=== PATIENT | female | born 1945 | race Caucasian/White ===

== ENCOUNTER → 2017-12-12 07:56 | Outpatient (CLI) | payer MEDICARE, MEDICAID, SELFPAY ==
[2017-12-12 09:16] LABS: Add Manual Diff / Slide Review NO; Basophils Percent Auto 0.6 % (0-2); Hematocrit 37.4 % (36-46); Hemoglobin 12.9 g/dL (12.0-16.0); Lymphocytes Percent Auto 32.8 % (25-40); Mean Corpuscular HGB Conc 34.3 % (30-36); Mean Corpuscular Volume 87.5 fL (80-100); Monocytes Percent Auto 8.5 % (3-14); Neutrophils Absolute Auto 3700 /uL (3000-5900); Neutrophils Percent Auto 55.1 % (50-75); Platelet Count 250 X10^3/uL (150-400); Red Blood Cell Count 4.28 X10^6/uL (4.0-5.2); Red Cell Distribution Width 13.7 % (11.6-14.8); White Blood Cell Count 6.7 X10^3/uL (4.5-11.0)
[2017-12-12 09:44] LABS: Alanine Aminotransferase 39 IU/L (9-52); Albumin 4.4 g/dL (3.5-5.0); Albumin Globulin Ratio 1.1 (1.0-2.8); Alkaline Phosphatase 64 U/L (38-126); Aspartate Aminotransferase 31 IU/L (14-36); BUN Creatinine Ratio 21.8 (6-22); Bilirubin Total 0.5 mg/dL (0.2-1.3); Blood Urea Nitrogen 24 mg/dL (7-17); Calcium 9.2 mg/dL (8.4-10.2); Carbon Dioxide 29 mmol/L (22-32); Chloride 106 mmol/L (98-107); Cholesterol 166 mg/dL (140-199); Estimated Glomerular Filt Rate 48.6 mL/min (>60); Globulin 3.9 g/dL (1.7-4.1); Glucose 97 mg/dL (80-110); HDL Cholesterol 47 mg/dL (40-60); HEMOLYSIS < 15 (0-50); LDL Cholesterol Calculated 84 mg/dL (<100); Potassium 4.8 mmol/L (3.4-5.1); Sodium 144 mmol/L (137-145); Total Protein 8.3 g/dL (6.3-8.2); Triglycerides 173 mg/dL (35-150)
[2017-12-12 10:01] LABS: Thyroid Stimulating Hormone 6.18 uIU/mL (0.47-4.68)
== END ==
PROVIDERS: Family Provider Internal Medicine Cardiovascular Disease; PCP Internal Medicine; Visit Provider Internal Medicine
DX: I25.10 Atherosclerotic heart disease of native coronary artery without angina pectoris (principal); E78.00 Pure hypercholesterolemia, unspecified; E03.9 Hypothyroidism, unspecified
CPT/HCPCS: 36415; 80053; 80061; 84443; 85025

== ENCOUNTER → 2017-12-19 14:36 | Outpatient (CLI) | payer MEDICARE, MEDICAID, SELFPAY | PROVIDERS: Family Provider Internal Medicine Cardiovascular Disease; PCP Internal Medicine; Visit Provider Internal Medicine | DX: Z78.0 Asymptomatic menopausal state (principal); Z90.722 Acquired absence of ovaries, bilateral | CPT/HCPCS: 77080 ==

== ENCOUNTER → 2018-02-20 10:34 | Outpatient (CLI) | payer MEDICARE, MEDICAID, SELFPAY ==
--- NOTE | 2018-02-20 | DI.US.S_ITS ---
PROCEDURE: US CAROTID DOPPLER BI INDICATIONS: CORONARY ARTERY DISEASE TECHNIQUE: Color and pulse Doppler interrogation was performed of both carotid systems, with image documentation and velocity measurements. COMPARISON: None. FINDINGS: Stenosis calculations are based on SRU (Society of Radiologists in Ultrasound) criteria. Right side: Brachial blood pressure: 128/73 mm Hg. Common carotid artery peak systolic velocity: 69 cm/sec. Internal carotid artery peak systolic velocity: 92 cm/sec. Internal carotid artery end diastolic velocity: 43 cm/sec. External carotid artery peak systolic velocity: 44 cm/sec. ICA/CCA peak systolic ratio: 1.3. Dowd scale imaging description: Minimal scattered plaque. Percent internal carotid artery stenosis: Less than 50%. Vertebral artery: Flow direction is antegrade. Left side: Brachial blood pressure: 135/82 mm Hg. Common carotid artery peak systolic velocity: 77 cm/sec. Internal carotid artery peak systolic velocity: 72 cm/sec. Internal carotid artery end diastolic velocity: 33 cm/sec. External carotid artery peak systolic velocity: 51 cm/sec. ICA/CCA peak systolic ratio: 0.9. Dowd scale imaging description: Minimal scattered plaque. Percent internal carotid artery stenosis: Less than 50%. Vertebral artery: Flow direction is antegrade. IMPRESSION: Less than 50% bilateral internal carotid artery stenosis. Dictated by: Benigno Tomas [facility] Interpreted: Tawanna Harrington MD on 02/20/2018 at 15:53 Approved by: Tawanna Harrington M.D. on 02/21/2018 at 9:05
== END ==
PROVIDERS: Family Provider Internal Medicine Cardiovascular Disease; PCP Internal Medicine; Visit Provider Internal Medicine Cardiovascular Disease
DX: I65.23 Occlusion and stenosis of bilateral carotid arteries (principal); I25.10 Atherosclerotic heart disease of native coronary artery without angina pectoris
CPT/HCPCS: 93880

== ENCOUNTER → 2018-04-07 09:40 | Outpatient (CLI) | payer MEDICARE, MEDICAID, SELFPAY ==
[2018-04-07 12:05] LABS: Cholesterol 126 mg/dL (140-199); HDL Cholesterol 45 mg/dL (40-60); LDL Cholesterol Calculated 58 mg/dL (<100); Triglycerides 113 mg/dL (35-150)
== END ==
PROVIDERS: PCP Internal Medicine; Visit Provider Hospitalist
DX: E78.01 Familial hypercholesterolemia (principal)
CPT/HCPCS: 36415; 80061

== ENCOUNTER → 2018-12-08 08:28 | Outpatient (CLI) | payer MEDICARE, MEDICAID, SELFPAY ==
[2018-12-08 09:23] LABS: Add Manual Diff / Slide Review NO; Basophils Absolute Auto 100 /uL (0-100); Eosinophils Absolute Auto 200 /uL (0-450); Hematocrit 39.3 % (36-46); Hemoglobin 13.2 g/dL (12.0-16.0); Lymphocytes Absolute Auto 1800 /uL (1100-4500); Lymphocytes Percent Auto 35.2 % (25-40); Mean Corpuscular HGB Conc 33.5 % (30-36); Mean Corpuscular Hemoglobin 29.4 PG (26-34); Mean Corpuscular Volume 87.7 fL (80-100); Monocytes Absolute Auto 500 /uL (0-900); Monocytes Percent Auto 9.2 % (3-14); Neutrophils Absolute Auto 2600 /uL (1500-7000); Neutrophils Percent Auto 50.6 % (50-75); Platelet Count 222 X10^3/uL (150-400); Red Blood Cell Count 4.48 X10^6/uL (4.0-5.2); Red Cell Distribution Width 13.5 % (11.6-14.8); White Blood Cell Count 5.2 X10^3/uL (4.5-11.0)
[2018-12-08 09:37] LABS: Alanine Aminotransferase 44 IU/L (9-52); Albumin 4.5 g/dL (3.5-5.0); Alkaline Phosphatase 67 U/L (38-126); Aspartate Aminotransferase 44 IU/L (14-36); BUN Creatinine Ratio 20.9 (6-22); Bilirubin Total 0.7 mg/dL (0.2-1.3); Blood Urea Nitrogen 23 mg/dL (7-17); Calcium 9.6 mg/dL (8.4-10.2); Carbon Dioxide 27 mmol/L (22-32); Chloride 105 mmol/L (98-107); Estimated Glomerular Filt Rate 48.4 mL/min (>60); Globulin 4.3 g/dL (1.7-4.1); Glucose 104 mg/dL (80-110); HEMOLYSIS < 15 (0-50); Potassium 4.8 mmol/L (3.4-5.1); Sodium 140 mmol/L (137-145); Total Protein 8.8 g/dL (6.3-8.2)
[2018-12-08 10:24] LABS: TSH w/ Reflex to FT4 5.71 uIU/mL (0.47-4.68)
[2018-12-08 10:49] LABS: Free T4, Direct Thyroxine 0.97 ng/dL (0.78-2.19)
== END ==
PROVIDERS: Family Provider Hospitalist; PCP Internal Medicine; Visit Provider Internal Medicine
DX: E78.00 Pure hypercholesterolemia, unspecified (principal); K21.9 Gastro-esophageal reflux disease without esophagitis; I10 Essential (primary) hypertension; E03.9 Hypothyroidism, unspecified
CPT/HCPCS: 36415; 80053; 84439; 84443; 85025

== ENCOUNTER → 2018-12-15 09:55 | Outpatient (CLI) | payer MEDICARE, MEDICAID, SELFPAY ==
[2018-12-15 11:15] LABS: Cholesterol 128 mg/dL (140-199); HDL Cholesterol 54 mg/dL (40-60); LDL Cholesterol Calculated 54 mg/dL (<100); Triglycerides 101 mg/dL (35-150)
== END ==
PROVIDERS: Family Provider Hospitalist; PCP Internal Medicine; Visit Provider Internal Medicine
DX: E78.00 Pure hypercholesterolemia, unspecified (principal)
CPT/HCPCS: 36415; 80061

== ENCOUNTER → 2018-12-30 09:14 | Outpatient (CLI) | payer MEDICARE, MEDICAID, SELFPAY ==
[2019-01-01 21:26] LABS: Albumin 3.9 g/dL (3.8-4.8); Alpha 1 Globulin 0.3 g/dL (0.2-0.3); Alpha 2 Globulin 0.7 g/dL (0.5-0.9); Beta 1 Globulin 0.4 g/dL (0.4-0.6); Gamma Globulin 1.7 g/dL (0.8-1.7); Protein, Total 7.4 g/dL (6.1-8.1)
== END ==
PROVIDERS: Family Provider Hospitalist; PCP Internal Medicine; Visit Provider Internal Medicine
DX: E88.09 Other disorders of plasma-protein metabolism, not elsewhere classified (principal)
CPT/HCPCS: 36415; 84155; 84165

== ENCOUNTER → 2019-02-09 09:03 | Outpatient (CLI) | payer MEDICARE, MEDICAID, SELFPAY ==
[2019-02-09 10:49] LABS: Alanine Aminotransferase 27 IU/L (<35); Albumin 4.5 g/dL (3.5-5.0); Albumin Globulin Ratio 1.2 (1.0-2.8); Alkaline Phosphatase 66 U/L (38-126); Aspartate Aminotransferase 36 IU/L (14-36); Bilirubin Total 0.7 mg/dL (0.2-1.3); Bilirubin Unconjugated 0.7 mg/dL (0.0-1.1); Globulin 3.7 g/dL (1.7-4.1); HEMOLYSIS < 15 (0-50); Total Protein 8.2 g/dL (6.3-8.2)
== END ==
PROVIDERS: Family Provider Hospitalist; PCP Internal Medicine; Visit Provider Internal Medicine
DX: R74.8 Abnormal levels of other serum enzymes (principal)
CPT/HCPCS: 36415; 80076

== ENCOUNTER → 2019-03-16 11:52 | Outpatient (CLI) | payer MEDICARE, MEDICAID, SELFPAY ==
--- NOTE | 2019-03-16 | DI.MG.S_ITS ---
BILATERAL DIGITAL SCREENING MAMMOGRAM 3D/2D WITH CAD: 03/16/2019 CLINICAL: Routine screening. Comparison is made to exams dated: 07/12/2015 mammogram, 12/24/2014 mammogram, and 12/14/2014 mammogram - [facility]. The tissue of both breasts is heterogeneously dense. This may lower the sensitivity of mammography. Current study was also evaluated with a Computer Aided Detection (CAD) system. There is an oval asymmetry in the left breast middle depth central to the nipple seen on the craniocaudal view only. No other significant masses, calcifications, or other findings are seen in either breast. IMPRESSION: INCOMPLETE: NEEDS ADDITIONAL IMAGING EVALUATION The oval asymmetry in the left breast is indeterminate. Additional views with possible ultrasound are recommended. This exam was interpreted at Station ID: [id number]. NOTE: For mammograms, a report in lay terms will be sent to the patient. Approximately 15% of breast malignancies will not be visualized mammographically. In the management of a palpable breast mass, a negative mammogram must not discourage biopsy of a clinically suspicious lesion. Electronically Signed By: Jo-Ann mitchell/darek:03/16/2019 13:40:00 letter sent: Additional Imaging Needed ACR BI-RADS Category 0: Incomplete 3340F
== END ==
PROVIDERS: Family Provider Hospitalist; PCP Internal Medicine; Visit Provider Internal Medicine
DX: Z12.31 Encounter for screening mammogram for malignant neoplasm of breast (principal)
CPT/HCPCS: 77063; 77067

== ENCOUNTER → 2019-03-31 12:56 | Outpatient (CLI) | payer MEDICARE, MEDICAID, SELFPAY ==
--- NOTE | 2019-03-31 | DI.US.S_ITS ---
ULTRASOUND OF LEFT BREAST: 03/31/2019 CLINICAL: Patient returns today to evaluate a focal asymmetry in the left breast. Comparison is made to exams dated: 07/12/2015 mammogram, 03/16/2019 mammogram, 12/24/2014 mammogram, and 12/14/2014 mammogram - [facility]. Real-time ultrasound of the left breast was performed. Dowd scale images of the real-time examination were reviewed. No significant abnormalities were seen sonographically in the left breast. IMPRESSION: NEGATIVE There is no sonographic evidence of malignancy. There is no abnormality seen in the left breast to correspond with the mammography finding at 6 o'clock which is consistent with summation artifact from normal fibroglandular tissue. A 1 year screening mammogram is recommended. This exam was interpreted at Station ID: [id number]. Electronically Signed By: Rodolfo Carmen M.D. aty/:03/31/2019 15:43:53 letter sent: Normal Exam Ultrasound BI-RADS: 1 Negative
--- NOTE | 2019-03-31 | DI.MG.S_ITS ---
UNILATERAL LEFT DIGITAL DIAGNOSTIC MAMMOGRAM 3D/2D WITH ADDITIONAL VIEWS: 03/31/2019 CLINICAL: Additional evaluation requested from prior study. Comparison is made to exams dated: 03/16/2019 mammogram, 07/12/2015 mammogram, 12/24/2014 mammogram, and 12/14/2014 mammogram - [facility]. The tissue of left breast is heterogeneously dense. This may lower the sensitivity of mammography. The oval asymmetry in the left breast middle depth central to the nipple seen on the craniocaudal view only is no longer seen on additional imaging today. It appears to represent a small focus of summation artifact. A mole marker today partially obscures it's characterization on the craniocaudal view. The images without a mole marker confirmed that it was no longer visible as a distinct asymmetry or mass. No other significant masses or calcifications are seen in the breast. IMPRESSION: INCOMPLETE: NEEDS ADDITIONAL IMAGING EVALUATION The previously described asymmetry disperses with additional views and is consistent with summation artifact. However, an ultrasound is recommended to confirm. This is scheduled to immediately follow this study. This exam was interpreted at Station ID: [id number]. NOTE: For mammograms, a report in lay terms will be sent to the patient. Approximately 15% of breast malignancies will not be visualized mammographically. In the management of a palpable breast mass, a negative mammogram must not discourage biopsy of a clinically suspicious lesion. Electronically Signed By: Rodolfo Carmen M.D. aty/:03/31/2019 15:41:38 ACR BI-RADS Category 0: Incomplete 3340F
== END ==
PROVIDERS: Family Provider Hospitalist; PCP Internal Medicine; Visit Provider Internal Medicine
DX: R92.8 Other abnormal and inconclusive findings on diagnostic imaging of breast (principal)
CPT/HCPCS: 76642; 77065; G0279

== ENCOUNTER → 2019-08-17 13:56 | Outpatient (CLI) | payer MEDICARE, MEDICAID, SELFPAY ==
--- NOTE | 2019-08-17 | DI.RAD.S_ITS ---
PROCEDURE: XR THORACIC SPINE 3V INDICATIONS: BACK PAIN/Pain in thoracic spine TECHNIQUE: 3 views of the thoracic spine were acquired. COMPARISON: [facility], CR, XR LUMBAR SPINE 2-3V, 08/17/2019, 13:56. [facility], CT, THORAX WITHOUT CONTRAST, 11/21/2014, 11:48. FINDINGS: Bones: No fractures or dislocations. No suspicious bony lesions. 12 pairs of ribs are noted, and appear intact where visualized. Accentuated thoracic kyphosis is seen. Age-appropriate degenerative changes are seen, with mild disc space narrowing anteriorly, with associated endplate irregularity and sclerosis. Soft tissues: No paravertebral stripe thickening. IMPRESSION: Age-appropriate thoracic spine degenerative changes are seen by plain film. Dictated by: Harish Rivera M.D. on 08/17/2019 at 14:51 Approved by: Harish Rivera M.D. on 08/17/2019 at 14:52
--- NOTE | 2019-08-17 | DI.RAD.S_ITS ---
PROCEDURE: XR LUMBAR SPINE 2-3V INDICATIONS: BACK PAIN/Pain in thoracic spine TECHNIQUE: 2 views of the lumbar spine were acquired. COMPARISON: [facility], CR, XR THORACIC SPINE 3V, 08/17/2019, 13:56. FINDINGS: Bones: Minimal S-shaped scoliotic curvature is seen. No focal AP alignment abnormality is seen. No displaced fractures are seen. 5 nonrib-bearing, lumbar type vertebral bodies are seen. There is moderate disc space narrowing seen at L3-L4, L4-L5, and L5-S1. Endplate irregularity and sclerosis are seen, which are most prominent at the L4-L5 level. Lower lumbar spine facet arthropathy is seen. Soft tissues: Overlying bowel gas pattern is normal. No suspicious soft tissue calcifications. IMPRESSION: Lower lumbar spine degenerative changes are seen. Dictated by: Harish Rivera M.D. on 08/17/2019 at 14:48 Approved by: Harish Rivera M.D. on 08/17/2019 at 14:51
== END ==
PROVIDERS: Family Provider Hospitalist; PCP Internal Medicine; Referring Provider Internal Medicine; Visit Provider Internal Medicine
DX: M54.6 Pain in thoracic spine (principal); M47.814 Spondylosis without myelopathy or radiculopathy, thoracic region; M47.816 Spondylosis without myelopathy or radiculopathy, lumbar region
CPT/HCPCS: 72072; 72100

== ENCOUNTER → 2019-08-22 09:51 | Outpatient (CLI) | payer MEDICARE, MEDICAID, SELFPAY ==
[2019-08-22 11:35] LABS: BUN Creatinine Ratio 17.8 (6-22); Blood Urea Nitrogen 16 mg/dL (7-17); Calcium 9.3 mg/dL (8.4-10.2); Carbon Dioxide 24 mmol/L (22-32); Chloride 108 mmol/L (98-107); Cholesterol 121 mg/dL (140-199); Estimated Glomerular Filt Rate > 60.0 mL/min (>60); Glucose 103 mg/dL (80-110); HDL Cholesterol 38 mg/dL (40-60); HEMOLYSIS < 15 (0-50); LDL Cholesterol Calculated 56 mg/dL (<100); Magnesium 1.9 mg/dL (1.6-2.3); Potassium 4.1 mmol/L (3.4-5.1); Sodium 139 mmol/L (137-145); Triglycerides 137 mg/dL (35-150)
== END ==
PROVIDERS: Family Provider Hospitalist; PCP Internal Medicine; Referring Provider Hospitalist; Visit Provider Hospitalist
DX: I25.10 Atherosclerotic heart disease of native coronary artery without angina pectoris (principal); E78.5 Hyperlipidemia, unspecified
CPT/HCPCS: 36415; 80048; 80061; 83735

== ENCOUNTER 2020-01-26 12:15 | Outpatient (RCR) | payer MEDICARE, MEDICAID, SELFPAY ==
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
--- NOTE | 2020-01-07 15:39 | PT.OPPOC ---
Physical, Occupational & Speech Therapy At [facility] Current Diagnoses Pain in thoracic spine (01/07/20) Visit Care Team Role Provider Type Austen Sánchez MD Attending Provider Physician Primary Care Provider Referring Provider Specialty: Internal Medicine Address: [address] [place] [address], [id number] Email: [email or web address] Plan Of Care PT-OP-T Assessment and Plan Start: 11/24/19 14:08 Freq: Status: Active Protocol: Document 01/07/20 12:13 MB (Rec: 01/07/20 13:01 MB [id number]) Physical Therapy Assessment Goals 4 Cook Barbecue Goal (LTG) Pt will gait train at least 1500 feet in 6 minutes to prepare for return to walking for exercise by 03/08/2020. 01/07/2020: Pt gait trains 794 feet in 6 minutes, slow gait with occ sharp pain LTG Duration 8 weeks 3 Cook Barbecue Goal (LTG) Pt will perform progressive HEP with I including postural, strengthening, relaxation, breathing, flexibility and balance exercises to promote activity tolerance and to decrease pain by 03/08/2020. 01/07/2020: Pt states that the ball against the wall, figure four stretch, pelvic realignment exercise and open book exercises. LTG Duration 8 weeks 2 Fdc Goal (LTG) Pt will present with B hip flexion and abduction strength to at least 4/5 to improve functional transfers and standing tolerance by 2019. 01/07/2020: Deferred MMT d/t pt with reports of pain LTG Duration 8 weeks 1 Cook Barbecue Goal (LTG) Pt will present with Oswestry LBP scale score to reflect no more than 30% impairment to reflect improved function and pain by 03/08/2020. 01/07/2020: Oswestry LBP scale reflects 64% impairment and she has been having a flare up of pain after cooking for several hours over the weekend . LTG Duration 8 weeks Progress Towards Goals Progress Towards Goals Slow Progress - Other Progress Comments Pt spent several hours standing and cooking in the kitchen on Saturday and has had a bad flare-up of pain. Assessment Summary Assessment Pt presents with worse pain after standing and cooking for many hours on Saturday. She has not progressed towards back pain goals, strengthening or exercises d/t flare-up. Pt presents with resting involuntary cervical movement that appear like flexion/ extension tremoring. She states that it is worse with increasing back pain. She con' t to have to provide care for her significant other including assisting with bathing and dressing including donning his compression hose. She assists him to go down the stairs and she holds onto gait belt. Pt reports history of being tested for OP and was negative (tested about 2 years ago). PT provides extensive pt education and reassurance today. PT ed pt in benefits of SI belt and she tries on today. Re-ed pt on not performing long bouts of cooking, consider asking significant other's family about hiring assist for him at home. Pt will benefit from ongoing PT to improve relaxation exercises, gentle manual interventions like Counterstrain, body mechanics and self-care techniques, gentle progressive core engagement. Physical Therapy Plan Frequency and Duration Frequency of Treatment 2x/Week Duration of Treatment 8 weeks Plan of Care Start Date 01/07/20 Plan of Care End Date 03/08/20 Therapeutic Interventions Therapeutic Interventions Aquatic Therapy,Balance Training,Canalithic Repositioning,Home Exercise Program,Joint Mobilizations, Manual Therapy,Neuromuscular Re-education,Patient/Caregiver Education,Self-Care/Home Management,Soft Tissue Mobilization,Taping, Therapeutic Activities, Therapeutic Exercises Modalities Cold Pack/Ice Massage,Electric Stimulation,Hot Packs, Ultrasound Next Visit Focus/Plan Next Note Type Treatment Note Next Visit Plan Consider Counterstrain for fascial release and parasympathetic stimulation. Continue progessing diaphragm breathing, relaxation exercises such as progressive muscle relaxation, Buteyko breathing, gentle core work. Plan of Care Dates Plan of Care Start Date 01/07/20 Plan of Care End Date 03/08/20 Electronically Signed by: Isabel Saldivar, PT 01/07/20 3730 Please Sign and Return: I have reviewed this Plan of Care and certify that the skilled therapy services above are required to meet the patient?s needs. Physician Signature Date Printed Name and Credentials Clinical Instructor Signature Printed Name and Credentials
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
== END 2020-02-05 07:58 | disposition home or self-care (01) ==
LOC: PHYS 12:15
PROVIDERS: PCP Internal Medicine; Referring Provider Internal Medicine; Visit Provider Internal Medicine
DX: M54.6 Pain in thoracic spine (principal)
CPT/HCPCS: 97014; 97110; 97116; 97140; 97162; 97535; G0283

== ENCOUNTER → 2020-03-17 13:03 | Outpatient (CLI) | payer MEDICARE, MEDICAID, SELFPAY | PROVIDERS: PCP Internal Medicine; Referring Provider Internal Medicine; Visit Provider Internal Medicine | DX: M85.88 Other specified disorders of bone density and structure, other site (principal); Z78.0 Asymptomatic menopausal state; Z90.722 Acquired absence of ovaries, bilateral; Z87.891 Personal history of nicotine dependence | CPT/HCPCS: 77080 ==

== ENCOUNTER → 2020-04-12 16:16 | Outpatient (CLI) | payer MEDICARE, MEDICAID, SELFPAY ==
--- NOTE | 2020-04-12 16:18 | DI.MG.S_ITS ---
BILATERAL DIGITAL SCREENING MAMMOGRAM 3D/2D WITH CAD: 04/12/2020 CLINICAL: Routine screening. Comparison is made to exams dated: 03/31/2019 mammogram, 03/16/2019 mammogram, 07/12/2015 mammogram, 12/24/2014 mammogram, and 12/14/2014 mammogram - [facility]. The tissue of both breasts is heterogeneously dense. This may lower the sensitivity of mammography. Current study was also evaluated with a Computer Aided Detection (CAD) system. There are benign calcifications in both breasts. No significant masses, calcifications, or other findings are seen in either breast. There has been no significant interval change. IMPRESSION: BENIGN There is no mammographic evidence of malignancy. A 1 year screening mammogram is recommended. This exam was interpreted at Station ID: [id number]. NOTE: For mammograms, a report in lay terms will be sent to the patient. Approximately 15% of breast malignancies will not be visualized mammographically. In the management of a palpable breast mass, a negative mammogram must not discourage biopsy of a clinically suspicious lesion. Electronically Signed By: Ricardo shaw/darek:04/13/2020 07:30:43 letter sent: Normal Exam ACR BI-RADS Category 2: Benign Finding(s) [id number]
== END ==
PROVIDERS: PCP Internal Medicine; Referring Provider Internal Medicine; Visit Provider Internal Medicine
DX: Z12.31 Encounter for screening mammogram for malignant neoplasm of breast (principal)
CPT/HCPCS: 77063; 77067

== ENCOUNTER → 2020-05-31 17:08 | Outpatient (CLI) | payer MEDICARE, MEDICAID, SELFPAY ==
[2020-05-31] MEDS: COVID-19 VACC #1, MRNA(MOD) 100 MCG/0.5 ML VIAL IM (17:11)
== END ==
PROVIDERS: PCP Internal Medicine; Visit Provider Internal Medicine
DX: Z23 Encounter for immunization (principal)
CPT/HCPCS: 0011A; 91301

== ENCOUNTER → 2020-07-18 10:42 | Outpatient (CLI) | payer MEDICARE, MEDICAID, SELFPAY ==
[2020-07-18 11:35] LABS: Add Manual Diff / Slide Review NO; Basophils Absolute Auto 100 /uL (0-100); Eosinophils Absolute Auto 100 /uL (0-450); Eosinophils Percent Auto 2.5 % (2-4); Hematocrit 35.9 % (36-46); Hemoglobin 12.1 g/dL (12.0-16.0); Lymphocytes Absolute Auto 1400 /uL (1100-4500); Lymphocytes Percent Auto 23.5 % (25-40); Mean Corpuscular HGB Conc 33.7 % (30-36); Mean Corpuscular Hemoglobin 30.2 PG (26-34); Mean Corpuscular Volume 89.4 fL (80-100); Monocytes Absolute Auto 400 /uL (0-900); Monocytes Percent Auto 6.5 % (3-14); Neutrophils Absolute Auto 4000 /uL (1500-7000); Neutrophils Percent Auto 66.5 % (50-75); Platelet Count 216 X10^3/uL (150-400); Red Blood Cell Count 4.01 X10^6/uL (4.0-5.2); Red Cell Distribution Width 13.5 % (11.6-14.8)
[2020-07-18 11:48] LABS: Alanine Aminotransferase 24 IU/L (<35); Albumin Globulin Ratio 1.1 (1.0-2.8); Alkaline Phosphatase 53 U/L (38-126); Aspartate Aminotransferase 26 IU/L (14-36); BUN Creatinine Ratio 17.8 (6-22); Bilirubin Total 0.6 mg/dL (0.2-1.3); Blood Urea Nitrogen 18 mg/dL (7-17); Calcium 9.3 mg/dL (8.4-10.2); Carbon Dioxide 24 mmol/L (22-32); Chloride 108 mmol/L (98-107); Cholesterol 129 mg/dL (140-199); Estimated Glomerular Filt Rate 53.3 mL/min (>60); Globulin 3.5 g/dL (1.7-4.1); Glucose 139 mg/dL (80-110); HDL Cholesterol 46 mg/dL (40-60); HEMOLYSIS < 15 (0-50); LDL Cholesterol Calculated 52 mg/dL (<100); Potassium 3.8 mmol/L (3.4-5.1); Sodium 140 mmol/L (137-145); Total Protein 7.5 g/dL (6.3-8.2); Triglycerides 155 mg/dL (35-150)
[2020-07-18 15:34] LABS: Thyroid Stimulating Hormone 2.73 uIU/mL (0.47-4.68)
== END ==
PROVIDERS: PCP Internal Medicine; Referring Provider Internal Medicine; Visit Provider Internal Medicine
DX: E03.9 Hypothyroidism, unspecified (principal); I10 Essential (primary) hypertension; E78.00 Pure hypercholesterolemia, unspecified
CPT/HCPCS: 36415; 80053; 80061; 84443; 85025

== ENCOUNTER → 2021-01-12 08:59 | Outpatient (CLI) | payer MEDICARE, MEDICAID, SELFPAY ==
--- NOTE | 2021-01-12 | DI.US.S_ITS ---
PROCEDURE: US CAROTID DOPPLER BI INDICATIONS: BILATERAL STENOSIS TECHNIQUE: Color and pulse Doppler interrogation was performed of both carotid systems, with image documentation and velocity measurements. COMPARISON: [facility], , US CAROTID DOPPLER BI, 02/20/2018, 11:04. FINDINGS: Stenosis calculations are based on SRU (Society of Radiologists in Ultrasound) criteria. The flow velocities and the arterial waveforms are normal within both carotid arterial systems. Minimal atherosclerotic plaque is seen on both sides. The estimated degree of internal carotid artery stenosis is less than 50%. Antegrade flow is confirmed within both vertebral arteries. IMPRESSION: No hemodynamically significant stenosis is seen. No significant change from the prior. Dictated by: Harish Rivera M.D. on 01/12/2021 at 10:09 Approved by: Harish Rivera M.D. on 01/12/2021 at 10:10
== END ==
PROVIDERS: PCP Internal Medicine; Referring Provider Internal Medicine Cardiovascular Disease; Visit Provider Internal Medicine Cardiovascular Disease
DX: I65.23 Occlusion and stenosis of bilateral carotid arteries (principal)
CPT/HCPCS: 93880

== ENCOUNTER → 2021-02-08 11:09 | Outpatient (CLI) | payer MEDICARE, MEDICAID, SELFPAY ==
[2021-02-08 12:56] LABS: Add Manual Diff / Slide Review NO; Basophils Absolute Auto 0 /uL (0-100); Basophils Percent Auto 0.9 % (0-2); Eosinophils Absolute Auto 200 /uL (0-450); Eosinophils Percent Auto 3.4 % (2-4); Hematocrit 37.4 % (36-46); Hemoglobin 12.5 g/dL (12.0-16.0); Lymphocytes Absolute Auto 1500 /uL (1100-4500); Lymphocytes Percent Auto 27.6 % (25-40); Mean Corpuscular HGB Conc 33.4 % (30-36); Mean Corpuscular Hemoglobin 29.3 PG (26-34); Mean Corpuscular Volume 87.8 fL (80-100); Monocytes Absolute Auto 500 /uL (0-900); Monocytes Percent Auto 8.2 % (3-14); Neutrophils Absolute Auto 3400 /uL (1500-7000); Neutrophils Percent Auto 59.9 % (50-75); Platelet Count 197 X10^3/uL (150-400); Red Blood Cell Count 4.27 X10^6/uL (4.0-5.2); Red Cell Distribution Width 13.6 % (11.6-14.8); White Blood Cell Count 5.6 X10^3/uL (4.5-11.0)
[2021-02-08 12:57] LABS: Hemoglobin A1C% w Est Avg Glu 5.6 % (4.0-6.0)
== END ==
PROVIDERS: PCP Internal Medicine; Referring Provider Internal Medicine; Visit Provider Internal Medicine
DX: I10 Essential (primary) hypertension (principal); R73.09 Other abnormal glucose; G25.0 Essential tremor
CPT/HCPCS: 36415; 83036; 85025